=== PATIENT | female | born 1950 ===

== ENCOUNTER → 2020-11-09 10:51 | Outpatient (CLI) | payer MEDICARE, OTHER, SELFPAY ==
[2020-11-09 19:39] LABS: BUN Creatinine Ratio 33.3 (6-22); Blood Urea Nitrogen 18 mg/dL (7-17); Calcium 9.8 mg/dL (8.4-10.2); Carbon Dioxide 27 mmol/L (22-32); Chloride 106 mmol/L (98-107); Estimated Glomerular Filt Rate > 60.0 mL/min (>60); Glucose 85 mg/dL (80-110); HEMOLYSIS < 15 (0-50); Potassium 4.1 mmol/L (3.4-5.1); Sodium 138 mmol/L (137-145)
[2020-11-09 21:24] LABS: COVID19 - ORCAS (NP or Nasal) Negative (Negative)
== END ==
PROVIDERS: Physician Assistant; Visit Provider Physician Assistant
DX: I35.0 Nonrheumatic aortic (valve) stenosis (principal); Z20.822 Contact with and (suspected) exposure to COVID-19
CPT/HCPCS: 80048; C9803; U0003

== ENCOUNTER → 2020-12-04 10:38 | Outpatient (CLI) | payer MEDICARE, OTHER, SELFPAY ==
[2020-12-04 13:39] LABS: COVID19 -Nasal RAPID Negative (Negative)
== END ==
PROVIDERS: Referring Provider Physician Assistant; Visit Provider Physician Assistant
DX: Z01.812 Encounter for preprocedural laboratory examination (principal); Z20.822 Contact with and (suspected) exposure to COVID-19
CPT/HCPCS: 87635; C9803

== ENCOUNTER → 2021-01-14 12:03 | Outpatient (CLI) | payer MEDICARE, OTHER, SELFPAY ==
[2021-01-14 18:44] LABS: BUN Creatinine Ratio 23.1 (6-22); Blood Urea Nitrogen 12 mg/dL (7-17); Calcium 9.2 mg/dL (8.4-10.2); Carbon Dioxide 25 mmol/L (22-32); Chloride 108 mmol/L (98-107); Estimated Glomerular Filt Rate > 60.0 mL/min (>60); Glucose 99 mg/dL (80-110); HEMOLYSIS < 15 (0-50); Potassium 4.1 mmol/L (3.4-5.1); Sodium 139 mmol/L (137-145)
[2021-01-14 18:57] LABS: Hematocrit 38.1 % (36-46); Mean Corpuscular HGB Conc 34.2 % (30-36); Mean Corpuscular Hemoglobin 31.1 PG (26-34); Platelet Count 171 X10^3/uL (150-400); Red Blood Cell Count 4.19 X10^6/uL (4.0-5.2); Red Cell Distribution Width 13.8 % (11.6-14.8); White Blood Cell Count 4.5 X10^3/uL (4.5-11.0)
[2021-01-15 06:26] LABS: Magnesium 2.1 mg/dL (1.6-2.3)
== END ==
PROVIDERS: Referring Provider Internal Medicine Interventional Cardiology; Visit Provider Internal Medicine Interventional Cardiology
DX: Q20.3 Discordant ventriculoarterial connection (principal); Q20.8 Other congenital malformations of cardiac chambers and connections; Z95.2 Presence of prosthetic heart valve; I35.0 Nonrheumatic aortic (valve) stenosis
CPT/HCPCS: 80048; 83735; 85027